=== PATIENT | male | born 1965 | race Two or more races ===

== ENCOUNTER 2019-08-18 22:26 | Emergency (ER) | payer MEDICAID, SELFPAY ==
[~2019-08-18] VITALS: Ht 162.6 cm; Wt 65.0 kg
[2019-08-18] MEDS ORDERED: SODIUM CHLORIDE 0.9% 1,000 ML IV ONE (22:33)
[2019-08-18] MEDS ORDERED: LIDOCAINE 2%,20 ML JEL.PF.APP MM ONE (23:00)
[2019-08-18 23:15] LABS: BASOPHILS # (AUTO) 0.03 x10^3/uL (0-0.1); BASOPHILS % (AUTO) 0 % (0-1); EOSINOPHILS # (AUTO) 0.13 x10^3/uL (0-0.4); EOSINOPHILS % (AUTO) 2 % (1-7); LYMPHOCYTES # (AUTO) 1.81 x10^3/uL (1-3.4); LYMPHOCYTES % (AUTO) 28 % (22-44); MD NO; MEAN CORPUSCULAR HEMOGLOBIN 26.8 pg (27.5-34.5); MEAN CORPUSCULAR HGB CONC 31.9 g/dL (33.2-36.2); MEAN CORPUSCULAR VOLUME 83.8 fL (81-97); MONOCYTES # (AUTO) 0.39 x10^3/uL (0.2-0.8); MONOCYTES % (AUTO) 6 % (2-9); NEUTROPHILS # (AUTO) 4.02 x10^3/uL (1.8-6.8); NEUTROPHILS % (AUTO) 63 % (42-75); PLATELET COUNT 323 x10^3/uL (130-400); RED CELL DISTRIBUTION WIDTH 18.8 % (9.4-14.8)
[2019-08-18 23:26] LABS: ALANINE AMINOTRANSFERASE 17 U/L (12-78); ALBUMIN 2.5 g/dL (3.4-5.0); ANION GAP 5 mmol/L (5-15); CALCIUM 8.9 mg/dL (8.5-10.1); CHLORIDE 106 mmol/L (98-107); CREATININE 0.46 mg/dL (0.7-1.3)
[2019-08-18 23:30] LABS: ALKALINE PHOSPHATASE 104 U/L (45-117); BILIRUBIN,TOTAL 0.4 mg/dL (0.2-1.0); TOTAL PROTEIN 8.2 g/dL (6.4-8.2); TROPONIN I < 0.015 ng/mL (0.000-0.045)
[2019-08-19 00:13] LABS: CULTURE INDICATED? YES; MICROSCOPIC INDICATED
[2019-08-19] MEDS ORDERED: AMLODIPINE (00:15)
[2019-08-19] MEDS ORDERED: CLOPIDOGREL (00:15)
[2019-08-19] MEDS ORDERED: METOPROLOL (00:15)
[2019-08-19] MEDS ORDERED: ATORVASTATIN (00:15)
[2019-08-19] MEDS ORDERED: OMEPRAZOLE (00:15)
[2019-08-19] MEDS ORDERED: HUMALOG (00:15)
[2019-08-19] MEDS ORDERED: POTASSIUM CHLORIDE (00:15)
[2019-08-19] MEDS ORDERED: ZOFRAN GT (00:15)
[2019-08-19] MEDS ORDERED: FLUOXETINE (00:15)
[2019-08-19] MEDS ORDERED: ONDANSETRON 2MG/ML, 2ML IVPush ONE (00:30)
[2019-08-19] MEDS ORDERED: MORPHINE SULFATE 4 MG/ML, 1ML IVPush PRN (00:30)
[2019-08-19] MEDS ORDERED: FOSFOMYCIN 3 GM PACKET ONE (01:09)
[2019-08-19] MEDS ORDERED: FOSFOMYCIN 3 GM PACKET PO ONE (01:30)
[2019-08-19 01:43] VITALS: BP 119/79
== END 2019-08-19 04:50 | disposition home or self-care (01) ==
LOC: ED 08-19 02:32
DX: N39.0 Urinary tract infection, site not specified (principal); R94.31 Abnormal electrocardiogram [ECG] [EKG]; I10 Essential (primary) hypertension; E11.9 Type 2 diabetes mellitus without complications; I25.10 Atherosclerotic heart disease of native coronary artery without angina pectoris; Z86.73 Personal history of transient ischemic attack (TIA), and cerebral infarction without residual deficits; Z93.1 Gastrostomy status; Z93.0 Tracheostomy status
CPT/HCPCS: 36415; 51702; 71045; 80053; 81001; 83605; 83880; 84145; 84484; 85025; 87040; 87077; 87086; 93005; 99285

== ENCOUNTER 2020-06-04 13:53 | Emergency (ER) | payer MEDICARE, MEDICAID ==
[~2020-06-04] VITALS: Ht 165.1 cm; Wt 80.0 kg
[~2020-06-04 13:53] MED LIST: AMLODIPINE; ASPI325T17 PO; ASPI81TA50 PO; ATOR40TA78 PO; ATORVASTATIN; CLOP75TA PO; CLOPIDOGREL; EMPA1TAB PO; FLUOXETINE; GLIP5TAB10 PO; HUMALOG; INSU100I13 SQ-INSULIN; LISI1TAB20 PO; METF500T17 PO; METOPROLOL; OMEPRAZOLE; POTASSIUM CHLORIDE; SIMV20TA19 PO; ZOFRAN GT
--- NOTE | 2020-06-04 14:38 | NUR ---
PT BIBA. PER EMS PT IS A QUADPLEGIC WTIH FEEDING TUBE WHICH GOT CLOGGED AND THEN CRACKED. PT IS NONVERBAL. PT RESTING IN GURNEY, MONITORING IN PLACE, NADN AT THIS TIME, DAUGHTER AT BS. PT'S DAUGHTER STATES NO NEEDS AT THIS TIME.
--- NOTE | 2020-06-04 15:50 | NUR ---
PT RESTING IN TIFFANIE TIMMONS, DAUGHTER AT BEDSIDE.
--- NOTE | 2020-06-04 15:50 | NUR ---
PT TO IR VIA [facility].
--- NOTE | 2020-06-04 16:37 | NUR ---
PT TO ROOM FROM IR [facility]IA [facility].
[2020-06-04 18:07] VITALS: BP 116/82
--- NOTE | 2020-06-04 18:14 | NUR ---
PT RESTING IN GURNEY AWAITING [facility] TRANSPORT HOME. DAUGHTER AT BEDSIDE.
--- NOTE | 2020-06-04 19:03 | NUR ---
REPORT GIVEN TO ELY GUZMÁN.
--- NOTE | 2020-06-04 19:12 | NUR ---
BEDSIDE REPORT FROM BENJY GRAVES, PT CARE TRASNFERRED AT THIS TIME. PT RESTING ON ANKITA TIMMONS, DENIES ADDITIONAL QUESTIONS OR NEEDS, TO BE TRANSFERRED HOME. WCTM.
--- NOTE | 2020-06-04 19:37 | NUR ---
ARIELLA RECEIVED REPORT AND PT TRANSFERRED HOME, FAMILY AWARE. PT NAD, NO PERSONAL BELONGINGS LEFT IN ROOM AT TIME OF DC. INSTRUCTIONS REVIEWED AND UNDERSTADNING COMMUNICATED.
== END 2020-06-04 19:38 | disposition home or self-care (01) ==
LOC: ED 17:44
DX: K94.23 Gastrostomy malfunction (principal); G82.50 Quadriplegia, unspecified; I10 Essential (primary) hypertension; E11.9 Type 2 diabetes mellitus without complications; I25.10 Atherosclerotic heart disease of native coronary artery without angina pectoris
CPT/HCPCS: 49460; 76000; 99285; C1769